=== PATIENT | female | born 1970 | race Caucasian/White ===

== ENCOUNTER → 2024-09-21 17:35 | Outpatient (CLI) | payer OTHER, SELFPAY ==
--- NOTE | 2024-09-21 17:38 | DI.MG.S_ITS ---
MM screening mammo BI: 09/21/2024. BI-RADS: 1 CLINICAL: 54-year old female for bilateral screening mammogram. Tyrer-Cuzick lifetime risk of 16.1%. No personal or first-degree family history of breast cancer. Current reported family history of breast cancer: maternal grandmother and paternal grandmother. PRIOR EXAMS: Reviewed previous images from 2023, 2021 and 2019. MAMMOGRAPHY TECHNIQUE: 2D and 3D (tomosynthesis) digital mammographic views obtained, with additional images as needed for full coverage. Current study was also evaluated with a Computer Aided Detection (CAD) system. DENSITY C. The breasts are heterogeneously dense, which may obscure small masses. MAMMOGRAPHY FINDINGS Bilateral: No suspicious mass, asymmetry, microcalcification, or other abnormality seen. No significant change from comparison. IMPRESSION: * No evidence of malignancy. RECOMMENDATIONS Bilateral * Annual screening mammography. OVERALL ASSESSMENT CATEGORY BI-RADS-1: Negative. The [employer] recommends annual screening mammography beginning at age 40 for women with average risk of breast cancer. ELECTRONICALLY SIGNED: Lisha Cruz M.D. on 09/22/2024 at 02:43:48 PM PT Interpreting Station ID: [id number]
== END ==
LOC: MAMMO 17:37
PROVIDERS: PCP Family Medicine; Referring Provider Family Medicine; Visit Provider Family Medicine
DX: Z12.31 Encounter for screening mammogram for malignant neoplasm of breast (principal); Z80.3 Family history of malignant neoplasm of breast; R92.333 Mammographic heterogeneous density, bilateral breasts
CPT/HCPCS: 77063; 77067

== ENCOUNTER 2024-12-23 07:26 | Day surgery (SDC) | payer OTHER, SELFPAY ==
[2024-12-23 08:01] VITALS: BP 119/76; PULSE 73; RESP 16; TEMP 36.3; O2SAT 96
[2024-12-23] MEDS: LACTATED RINGERS 1,000 ML 42 ML IV (08:04)
--- NOTE | 2024-12-23 08:28 | P.HP_ITS ---
History of Present Illness History of Present Illness Date Patient Seen: 12/23/24 Time Patient Seen: 08:28 Chief complaint: Screening Colonoscopy Narrative: Ruth is a 54-year-old woman who is here for colonoscopy. She had a colonoscopy about 6 years ago in [facility] with removal of a polyp. No known family history of colon cancer. PFSH Social History Smoking Status: Never smoker Meds Home Medications and Allergies Home Medications ?Medication ?Instructions ?Recorded ?Confirmed ?Type lisdexamfetamine 40 mg capsule 40 mg PO DAILY 12/23/24 12/23/24 History Allergies Allergy/AdvReac Type Severity Reaction Status Date / Time No Known Drug Allergies Allergy Verified 12/23/24 07:59 Exam Vital Signs (past 8 hours): - 12/23/24 08:01 Temperature 97.3 F L Pulse Rate 73 Respiratory Rate 16 Blood Pressure 119/76 Pulse Oximetry 96 Oxygen Delivery Method Room Air Oxygen Delivery Method Room Air Const General: healthy appearing Assessment & Plan Assessment and plan (1) History of colon polyps: Status: Acute Plan Colonoscopy Time-Based Coding :: [TOTAL MINUTES] spent with patient and on the chart (including review of chart, obtaining history, exam, reviewing outside data, placing orders, documenting exam and treatment plan, and counseling patient) on [DATE]. [employer] Document charge(s): No
[2024-12-23 08:54] VITALS: BP 140/64; PULSE 89; RESP 16; TEMP 36.4; O2SAT 99
[2024-12-23 08:55] VITALS: BP 110/76; PULSE 84; RESP 13; O2SAT 98
--- NOTE | 2024-12-23 08:58 | PM.OP.COLON ---
Operative Date/Time/Diagnoses Date of procedure: 12/23/24 Time of procedure: 08:58 Pre-op diagnosis: History of polyps Post-op diagnosis: same Procedure & Clinicians Study performed: Colonoscopy Same procedure(s) as scheduled: Yes Surgeon: Abe Briseno Anesthesia Type: MAC +/- Procedure Notes Procedure in detail: Surgeon: Abe Briseno MD Anesthesia: Aishwarya Rice CRNA Procedure: The patient was brought to the endoscopy suite, placed in left lateral decubitus position. The patient was connected to monitoring devices. A time-out was performed. Sedation was administered. Once the patient was adequately sedated, a digital rectal exam was performed and was normal. The scope was then inserted and advanced to the cecum where the appendiceal orifice was identified and photographed. The scope was then slowly withdrawn over greater than 6 minutes. The mucosa was thoroughly inspected. No abnormalities were identified aside from a few scattered diverticula. The scope was retroflexed in the rectum. The scope was straightened and removed. The patient was awakened and brought to recovery. Scope withdrawal time: 6 minutes Sedation time: 11 minutes EBL: 0 Findings: Normal colon Post-procedure Recommendations: Colonoscopy in 10 years Disposition: PACU
[2024-12-23 09:00] VITALS: BP 108/71; PULSE 93; RESP 10; O2SAT 99
== END 2024-12-23 09:19 | disposition home or self-care (01) ==
PROVIDERS: PCP Family Medicine; Referring Provider Family Medicine; Visit Provider Surgery
PROC: 0DJD8ZZ Inspection of Lower Intestinal Tract, Via Natural or Artificial Opening Endoscopic (ICD-10-PCS; CPT 45378; principal; 2024-12-23 08:45)
DX: Z12.11 Encounter for screening for malignant neoplasm of colon (principal); Z86.0100 Personal history of colon polyps, unspecified; K57.30 Diverticulosis of large intestine without perforation or abscess without bleeding
CPT/HCPCS: 45378; J2405; J2704